=== PATIENT | female | born 1935 | race Caucasian/White ===

== ENCOUNTER 2020-07-23 10:24 | Emergency (ER) | payer OTHER ==
[~2020-07-23] VITALS: Ht 154.9 cm; Wt 70.3 kg
== END 2020-07-23 11:57 | disposition home or self-care (01) ==
LOC: ER 10:24
DX: M25.562 Pain in left knee (principal); Z88.2 Allergy status to sulfonamides
CPT/HCPCS: 93971; 99283-25

== ENCOUNTER 2021-08-02 07:31 | Day surgery (SDC) | payer OTHER ==
[~2021-08-02] VITALS: Ht 157.5 cm; Wt 68.7 kg
[~2021-08-02 07:31] MED LIST: ALEVE220 MG PO; CALCIUM 250-D1 EAC1 PO; MULVITA PO; OMEGA-3 FISH O1 EAC6 PO; Ocuvite Preser1 EACH PO; Simvastatin20 MG PO
--- NOTE | 2021-08-02 09:59 | NUR ---
History, Chart, Medications and Allergies reviewed before start of procedure.Lungs clear T/O to Auscultation.DR BLAKE MARKED LEFT KNEE. 1000 UP TO BR VOIDED
--- NOTE | 2021-08-02 13:17 | NUR ---
PT TO THE FLOOR AT THIS TIME. DRESSING CDI. FAMILY AT BEDSIDE.
--- NOTE | 2021-08-02 19:18 | NUR ---
SHIFT SUMMARY PT POD #0 FOR L TOTAL HIP. PT WAS VERY NUMB WHEN SHE GOT TO THE FLOOR AND DID NOT WORK WITH PHYSICAL THERAPY. PT ALSO EXPERIENCED QUITE A BIT OF NAUSEA AND DECLINED TO EAT OR DRINK ANYTHING. TREATED FOR NAUSEA PER EMR. PT GOT UP AND WAS ABLE TO VOID TOWARDS THE END OF THE SHIFT. VSS. WILL WORK WITH PHYSICAL THERAPY TOMORROW.
--- NOTE | 2021-08-03 04:15 | NUR ---
SHIFT SUMMARY A/O X3-4, FORGETFUL AT TIMES APON AWAKENING. POD1 L TKA- AQUACEL AND CECIL WRAP IN PLACE, C/D/I. VOIDING WELL AND TOLERATING SMALL AMOUNTS OF PO INTAKE. ORAL PAIN MEDICATION GIVEN X1 THIS AM, PT REPORTS RELIEF W/ ORAL MED. VITAL SIGNS STABLE. AMBULATING WELL TO THE BATHROOM W/ SBA, FWW, AND GB. WILL CONTINUE TO MONITOR AND REPORT TO ONCOMING RN.
[2021-08-03 05:38] LABS: BASOPHILS ABSOLUTE AUTO 0.02 K/mm3 (0.00-0.23); BASOPHILS PERCENT AUTO 0 % (0-2); EOSINOPHILS PERCENT AUTO 0 % (0-6); Hematocrit 41.5 % (33.0-51.0); Hemoglobin 13.5 g/dL (11.5-16.0); IMMATURE GRAN ABSOLUTE AUTO 0.05 K/mm3 (0.00-0.10); IMMATURE GRAN PERCENT AUTO 0 % (0-1); LYMPHOCYTES ABSOLUTE AUTO 1.56 K/mm3 (0.84-5.20); LYMPHOCYTES PERCENT AUTO 11 % (21-46); MONOCYTES ABSOLUTE AUTO 1.08 K/mm3 (0.16-1.47); MONOCYTES PERCENT AUTO 8 % (4-13); Mean Corpuscular HGB 30.3 pg (26.0-34.0); Mean Corpuscular HGB Conc 32.5 g/dL (31.5-36.5); Mean Corpuscular Volume 93 fL (80-100); Mean Platelet Volume 10.3 fL (9.1-12.4); NEUTROPHILS PERCENT AUTO 81 % (41-73); Platelet Count 239 K/mm3 (150-400); RDW Coefficient Variation 13.2 % (11.7-14.2); Red Blood Cell Count 4.45 M/mm3 (3.80-5.20); White Blood Cell Count 14.21 K/mm3 (4.00-11.30)
[2021-08-03 05:52] LABS: Bun/Creatinine Ratio 20.9 (12.0-20.0); Calcium, Blood 8.9 mg/dL (8.5-10.1); Creatinine, Blood 0.72 mg/dL (0.40-1.00); Potassium, Blood 4.1 mmol/L (3.5-5.5)
[2021-08-03] MEDS ORDERED: Aspir 8181 MG PO (10:29)
[2021-08-03] MEDS ORDERED: Percocet 5-3251 EACH PO (10:29)
--- NOTE | 2021-08-03 12:32 | NUR ---
DISCHARGE SUMMARY PATIENT ALERT AND ORIENTED AND TELLER THROUGHOUT SHIFT. TOLERATING REGULAR DIET AND LIQUIDS. VOIDING WELL. AMBULATING IN HALLS WITH FWW AND GAIT BELT. CLEARED BY PT. PAIN CONTROLLED WITH PO PAIN MEDS. DISCHARGE ORDER IN CHART. DISCHARGE EDUCATION GIVEN ON NEW RXS, WOUND CARE, ACTIVITY, AND FOLLOW UP APPTS. IV DC'D WNL. PT TOLERATED WELL. PATIENT LEFT UNIT AT 1215 VIA WHEELCHAIR WITH SPOUSE FOR HOME.
== END 2021-08-03 12:30 | disposition home or self-care (01) ==
LOC: ORSCMMR 07:31 → ORD 09:15 → ORSCMMR 09:30 → ORD 09:30 → ORSCMMR 13:02 → SURS 13:02 → ORSCMMR 08-03 12:30 → SURS 08-03 12:30
PROVIDERS: Orthopaedic Surgery
PROC: 8E0Y0CZ Robotic Assisted Procedure of Lower Extremity, Open Approach (ICD-10-PCS; principal; 2021-08-02 09:15)
PROC: 0SRD0JA Replacement of Left Knee Joint with Synthetic Substitute, Uncemented, Open Approach (ICD-10-PCS; principal; 2021-08-02 09:15)
DX: M17.0 Bilateral primary osteoarthritis of knee (principal); E78.5 Hyperlipidemia, unspecified; Z79.899 Other long term (current) drug therapy
CPT/HCPCS: 27447; S2900; 36415; 73560-LT; 80048; 85025; 97161; 97530; A9270; C1776; J0171; J0690; J0735; J1100; J1885; J2250; J2370; J2405; J2704; J2795; J3010; J7120

== ENCOUNTER 2023-01-02 08:36 | Day surgery (SDC) | payer OTHER ==
[~2023-01-02] VITALS: Ht 154.9 cm; Wt 64.3 kg
[2023-01-02] VITALS (13 sets, daily range): BP systolic 95–144; BP diastolic 61–95
[~2023-01-02 08:36] MED LIST changes: +ACET500 PO; +Aspir 8181 MG PO; +FISH OIL PO; +IBUP200 PO; +MERIBIN5 MG PO; +Percocet 5-3251 EACH PO; +[UNRECOGNIZED DRUG - OTHER] PO
--- NOTE | 2023-01-02 10:17 | NUR ---
APRIL ROWAN HAD 1 IV ATTEMPT
--- NOTE | 2023-01-02 12:34 | NUR ---
01/02/23 1234 Lizbeth Talbot SPINAL NERVE BLOCK COMPLETED BY DR. QUINTERO UPON ENTRY TO OR. PT TOLERATED WELL.
--- NOTE | 2023-01-02 14:55 | NUR ---
PT ARRIVED TO THE ROOM AT 1417. PT ALERT AND ORIENTED UPON ARRIVAL. PT HAD SPINAL ANESTHESIA HAS NO SENSATION OR MOVEMENT TO BLE AT THIS TIME. SPINAL ANESTHESIA SITE WNL. PT EDUCATED TO USE HER CALL LIGHT, IT WAS PLACED WITHIN REACH. FAMILY AT THE BEDSIDE FOR SUPPORT.
--- NOTE | 2023-01-02 19:13 | NUR ---
SHIFT SUMMARY PT IS POD#0 FROM R TKA WITH DR. BLAKE. PAIN MANAGED WITH PO PAIN MEDICATION. PT HAS BEEN OOB AND AMBULATED TO THE BATHROOM WITH 1 PERSON ASSIST. PT HAS VOMITED X2, IV FLUIDS STILL RUNNING R/T N/V. PT RESTING IN BED, CALL LIGHT WITHIN REACH. REPORT GIVEN TO BRENDAN HODGES.
[2023-01-03 04:22] VITALS: BP 114/67
--- NOTE | 2023-01-03 04:26 | NUR ---
SHIFT SUMMARY POD 1 R TKA. PT RESTED WELL T/O NIGHT. CECIL WRAP TO KNEE REMAINS CDI WITH POLAR PACK IN PLACE. UP WITH 1 MIN ASSIST USING FWW + GB. FLORECITA PO. VOIDING. TYLENOL/TORADOL FOR PAIN MANAGEMENT. THERAPY TODAY AND PLAN TO DISCHARGE HOME.
[2023-01-03 04:36] LABS: BASOPHILS ABSOLUTE AUTO 0.03 K/mm3 (0.00-0.23); BASOPHILS PERCENT AUTO 0 % (0-2); EOSINOPHILS ABSOLUTE AUTO 0.03 K/mm3 (0.00-0.68); EOSINOPHILS PERCENT AUTO 0 % (0-6); Hemoglobin 12.2 g/dL (11.5-16.0); IMMATURE GRAN ABSOLUTE AUTO 0.02 K/mm3 (0.00-0.10); IMMATURE GRAN PERCENT AUTO 0 % (0-1); LYMPHOCYTES ABSOLUTE AUTO 2.11 K/mm3 (0.84-5.20); LYMPHOCYTES PERCENT AUTO 21 % (21-46); MONOCYTES ABSOLUTE AUTO 1.09 K/mm3 (0.16-1.47); MONOCYTES PERCENT AUTO 11 % (4-13); Mean Corpuscular Volume 94 fL (80-100); NEUTROPHILS ABSOLUTE AUTO 6.57 K/mm3 (1.96-9.15); NEUTROPHILS PERCENT AUTO 67 % (41-73); Platelet Count 207 K/mm3 (150-400); RDW Coefficient Variation 13.1 % (11.7-14.2); RDW Standard Deviation 45.4 fL (35.1-46.3); Red Blood Cell Count 3.93 M/mm3 (3.80-5.20); White Blood Cell Count 9.85 K/mm3 (4.00-11.30)
[2023-01-03 05:12] LABS: Bun/Creatinine Ratio 14.8 (12.0-20.0); Calcium, Blood 8.5 mg/dL (8.5-10.1); Creatinine, Blood 0.68 mg/dL (0.40-1.00); Potassium, Blood 4.1 mmol/L (3.5-5.5)
[2023-01-03 07:19] VITALS: BP 114/71
[2023-01-03] MEDS ORDERED: TRAM50 PO (09:30)
[2023-01-03] MEDS ORDERED: ASPI81CH PO (09:30)
--- NOTE | 2023-01-03 10:33 | NUR ---
DISCHARGE POD 1 R TKA PT AMBULATING WELL WITH THERAPY. PAIN WELL CONTROLLED PER EMAR. ALL INSTRUCTIONS GONE OVER WITH PATIENT AND SPOUSE. ALL BELONGINGS WITH PATIENT. TOLERATING DIET AND VOIDING WELL. NO FURTHER QUESTIONS. ESCORTED OUT WITH WHEELCHAIR.
== END 2023-01-03 10:31 | disposition home or self-care (01) ==
LOC: ORSCMMR 08:36 → ORD 10:00 → ORSCMMR 10:00 → ORD 10:45 → SURS 14:24 → ORSCMMR 01-03 10:31
PROVIDERS: Orthopaedic Surgery
PROC: 0SRC0JA Replacement of Right Knee Joint with Synthetic Substitute, Uncemented, Open Approach (ICD-10-PCS; principal; 2023-01-02 10:00)
DX: M17.11 Unilateral primary osteoarthritis, right knee (principal); E78.00 Pure hypercholesterolemia, unspecified; E78.5 Hyperlipidemia, unspecified; Z79.899 Other long term (current) drug therapy; Z96.652 Presence of left artificial knee joint
CPT/HCPCS: 36415; 73560-RT; 80048; 85025; 97110; 97116; 97162; A9270; C1713; C1776; J0171; J0690; J0735; J1885; J2405; J2704; J2795; J3010; J7120

== ENCOUNTER 2023-02-19 16:58 | Emergency (ER) | payer OTHER ==
[~2023-02-19] VITALS: Ht 157.5 cm; Wt 61.2 kg
[~2023-02-19 16:58] MED LIST changes: +ASPI81CH PO; +TRAM50 PO
[2023-02-19] MEDS ORDERED: MECL25 (17:43)
[2023-02-19 19:16] VITALS: BP 129/73
[2023-02-19 19:42] LABS: Bun/Creatinine Ratio 14.8 (12.0-20.0); Calcium, Blood 8.4 mg/dL (8.5-10.1); Creatinine, Blood 0.68 mg/dL (0.40-1.00); Potassium, Blood 4.1 mmol/L (3.5-5.5)
== END 2023-02-19 21:22 | disposition home or self-care (01) ==
LOC: ER 16:58
PROVIDERS: Student in an Organized Health Care Education/Training Program
DX: H81.399 Other peripheral vertigo, unspecified ear (principal); Z88.2 Allergy status to sulfonamides; Z79.82 Long term (current) use of aspirin; Z79.899 Other long term (current) drug therapy
CPT/HCPCS: 80048; 93005; 93010; 96361; 96374; 96375; 99284-25; A9270; J1200; J2765; J7030